=== PATIENT | female | born 1945 | race Caucasian/White ===

== ENCOUNTER 2017-10-24 10:29 | Inpatient (IN) | payer MEDICARE ==
[~2017-10-24] VITALS: Ht 157.5 cm; Wt 80.0 kg
[2017-10-24 10:04] VITALS: BP 151/70
[~2017-10-24 10:29] MED LIST: ALBU18HF IH; LEVO75TA PO; SERT50TA PO; SIMV40TA3 PO
[2017-10-24] MEDS ORDERED: ALBU0.63 NEB (11:03)
[2017-10-24] MEDS ORDERED: FLUD0.1T PO (11:03)
[2017-10-24] MEDS ORDERED: FLUT1DIS3 IH (11:03)
[2017-10-24] MEDS ORDERED: LEVO150T PO (11:03)
[2017-10-24] MEDS ORDERED: SIMV20TA3 PO (11:03)
[2017-10-24] MEDS ORDERED: FERR325T14 PO (11:03)
[2017-10-24] MEDS ORDERED: ASCO-78 PO (11:03)
[2017-10-24] MEDS ORDERED: TRIA10.8 NS (11:03)
[2017-10-24] MEDS ORDERED: SERT100T PO (11:03)
[2017-10-24] MEDS ORDERED: ASPI-630 PO (11:44)
[2017-10-24] MEDS ORDERED: CYAN10005 PO (11:44)
--- NOTE | 2017-10-24 12:30 | HP ---
ADMIT DATE: 10/24/2017 HISTORY OF PRESENT ILLNESS: The patient is a 72-year-old female patient, who was admitted directly from her primary care physician, Dr. Manning to investigate her anemia. She apparently presented to her office there with complaint of shortness of breath and her blood count by fingerstick was found that her hemoglobin was only 6 and therefore she was admitted for further evaluation and treatment. 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 PAST MEDICAL HISTORY: Significant for hypothyroidism, hyperlipidemia, osteoarthritis, bronchial asthma, and aortic stenosis. PAST SURGICAL HISTORY: Significant for aortic valve replacement in 2011, esophagogastroduodenoscopy, colonoscopy, cholecystectomy, total abdominal hysterectomy, bilateral salpingo-oophorectomy, appendectomy and right rotator cuff tear repair and also bilateral cataract extraction. ALLERGIES: She is allergic to . MEDICATIONS: She is currently on following medications: She is on albuterol sulfate 2 puffs every 4 hours as needed, albuterol sulfate by nebulizer 4 times a day. She is on ferrous sulfate 325 mg daily, simvastatin 20 mg at bedtime, aspirin 81 mg once a day, sertraline 100 mg twice a day, Advair Diskus 250/50 one puff twice a day, triamcinolone acetonide or Nasacort one spray to each nostril daily, fludrocortisone acetate 100 mcg daily, levothyroxine sodium 150 mcg once a day, cyanocobalamin 1000 mcg tablet once a day, ascorbic acid 500 mg daily. FAMILY HISTORY: She has 1 older sister that has diseased with complication of Mountrail's disease. Her younger brother and younger sister are still alive. Her younger brother is known to have Mountrail's chorea. Her father at age of 74 with complication of asthma and respiratory failure. Mother at the age of 82 with complication of her Mountrail's disease. SOCIAL HISTORY: She is , lives with her daughter. She quit smoking in 1993. She does not drink alcohol or use any recreational drugs. She used to work as a youth services librarian at [employer] and also . REVIEW OF SYSTEMS: The patient denied any blurring of vision, cataract, glaucoma or macular degeneration. Denied any earache, tinnitus or sensorineural deafness. Denied any nosebleeds, stuffy nose or postnasal drip. Denied any sore throat. Denied any nausea, vomiting, diarrhea or constipation. Denied any hematemesis, melena or hematochezia. Denied any dysuria, frequency or hematuria. She did complain of shortness of breath, but denied any orthopnea or paroxysmal nocturnal dyspnea. Denied any cough, phlegm or hemoptysis. Denied any chills, rigors or fever. PHYSICAL EXAMINATION: GENERAL: On arrival to the hospital she looked pale, but no jaundice, cyanosis or thyromegaly. No jugular venous distension. No limb edema. VITAL SIGNS: Her heart rate was 68, blood pressure 151/70, temperature was 98.4, respiratory rate 20, and oxygen saturation was 97% on room air. HEAD, EYES, EARS, NOSE AND THROAT: Showed normocephalic, atraumatic. NECK: Supple. HEART: Showed normal first and second heart sounds with no gallop, rub or murmur. CHEST: Clear to auscultation. No crepitation or rhonchi. ABDOMEN: Distended, soft, nontender. No guarding or rigidity. No organomegaly. All hernial orifice intact. Bowel sounds normal. NEUROLOGIC: She is awake, alert. All her cranial nerves are intact. EXTREMITIES: She moves her extremities without difficulty. She ambulates without assistance or assistive devices. ASSESSMENT AND PLAN: The patient was admitted to investigate her anemia as her hemoglobin was found to be only 6 at her primary care physician's office. We will send blood for CBC, CMP, serum iron, TIBC, serum ferritin, vitamin B12 and RBC folate. Also, we will send stool for occult blood. We will continue with all her current medication. If hemoglobin is 7 or less than 7, we will transfuse her 1 unit of blood and decide on further management accordingly. SABINA MELGZOA MD DR: TRI/hernandez JOB#: [id number] / [id number]
[2017-10-24 12:31] LABS: BASO % 1 % (0-3); EOS # 0.3 x10^3/uL (0.0-0.7); EOS % 5 % (0-3); HEMATOCRIT 20.7 % (36.0-47.0); LYMPH # 1.1 x10^3/uL (1.0-4.8); LYMPH % 21 % (24-48); MEAN CORPUSCULAR HEMOGLOBIN 21 pg (25-35); MEAN CORPUSCULAR HGB CONC 31 g/dL (31-37); MEAN CORPUSCULAR VOLUME 68 fL (79-100); MONO # 0.4 x10^3/uL (0.0-1.1); MONO % 8 % (0-9); NEUT # 3.4 x10^3uL (1.8-7.7); NEUT % 65 % (31-73); PLATELET COUNT 182 x10^3/uL (140-400); RED BLOOD COUNT 3.07 x10^6/uL (3.50-5.40); RED CELL DISTRIBUTION WIDTH 21.3 % (11.5-14.5); WHITE BLOOD COUNT 5.2 x10^3/uL (4.0-11.0)
[2017-10-24 12:34] LABS: HEMOGLOBIN 6.3 g/dL (12.0-15.5)
[2017-10-24] MEDS ORDERED: diphenhydrAMINE HCL 25 MG CAPSULE PO ONE (12:45)
[2017-10-24] MEDS ORDERED: ACETAMINOPHEN 500 MG TABLET PO ONE ×2 (12:45→23:15)
[2017-10-24 12:50] LABS: ALBUMIN 3.7 g/dL (3.4-5.0); CALCIUM 8.9 mg/dL (8.5-10.1); CREATININE 0.8 mg/dL (0.6-1.0); GFR 70.9; POTASSIUM 3.8 mmol/L (3.5-5.1); TOTAL BILIRUBIN 0.3 mg/dL (0.2-1.0); TOTAL PROTEIN 7.5 g/dL (6.4-8.2)
[2017-10-24 13:33] LABS: PLT ESTIMATE ADEQUATE (ADEQUATE)
[2017-10-24 13:34] LABS: ANISOCYTOSIS MOD; HYPOCHROMIA MOD; MICROCYTOSIS MOD; OVALOCYTES MOD; POIKILOCYTOSIS MOD; POLYCHROMASIA MOD; TEAR DROP CELLS OCC
[2017-10-24] MEDS ORDERED: ALBUTEROL SULFATE 8GM INHALER. IH PRN (14:45)
[2017-10-24] MEDS ORDERED: NON FORMULARY ITEM (Albuterol Sulfate (Albuterol Sulfate Neb Soln) 1 VIAL) NEB PRN (14:45)
[2017-10-24] MEDS ORDERED: ALBUTEROL SULFATE 2.5 MG/3 ML NEBU. NEB PRN (15:00)
[2017-10-24 15:01] VITALS: BP 158/65
[2017-10-24] MEDS: ALBUTEROL SULFATE 2.5 MG/3 ML NEBU. NEB SCH ×2 (16:39→23:11)
[2017-10-24 19:40] VITALS: BP 122/69
[2017-10-24] MEDS ORDERED: NON FORMULARY ITEM (Fluticasone/Salmeterol (Advair 250-50 Diskus) 1 PUFF) IH SCH (21:00)
[2017-10-24] MEDS: BUDESONIDE 0.5 MG/2 ML NEBU NEB SCH (21:08)
[2017-10-24] MEDS: SERTRALINE 100 MG TABLET. PO SCH (22:11)
[2017-10-24] MEDS: SIMVASTATIN 20 MG TABLET PO SCH (22:11)
[2017-10-24] MEDS ORDERED: diphenhydrAMINE ORAL ELIXIR 12.5 MG/5 ML ML PO ONE (23:15)
[2017-10-24 23:54] VITALS: BP 181/75
[2017-10-25] VITALS (11 sets, daily range): BP systolic 146–181; BP diastolic 62–78
[2017-10-25] MEDS: ALBUTEROL SULFATE 2.5 MG/3 ML NEBU. NEB SCH ×4 (04:49→21:46)
[2017-10-25] MEDS ORDERED: diphenhydrAMINE ORAL ELIXIR 12.5 MG/5 ML ML PO ONE (05:00)
[2017-10-25] MEDS ORDERED: ACETAMINOPHEN 325 MG TABLET PO ONE (05:00)
[2017-10-25] MEDS: LEVOTHYROXINE 150 MCG TABLET PO SCH (07:27)
[2017-10-25] MEDS: ASPIRIN 81 MG TAB.CHEW PO SCH (08:00)
[2017-10-25] MEDS: SERTRALINE 100 MG TABLET. PO SCH ×2 (08:47→20:02)
[2017-10-25] MEDS: FLUTICASONE 50MCG/NASAL SPRAY 16GM BOTTLE. NS SCH (08:47)
[2017-10-25] MEDS: ASCORBIC ACID 500 MG TABLET PO SCH (08:47)
[2017-10-25] MEDS: CYANOCOBALAMIN (VITAMIN B-12) 1,000 MCG TABLET. PO SCH (08:47)
[2017-10-25] MEDS: FLUDROCORTISONE 0.1 MG TABLET PO SCH (08:47)
[2017-10-25] MEDS: FERROUS SULFATE 325 MG TABLET. PO SCH (08:47)
[2017-10-25 09:03] LABS: BASO % 1 % (0-3); EOS # 0.2 x10^3/uL (0.0-0.7); EOS % 3 % (0-3); HEMATOCRIT 24.1 % (36.0-47.0); HEMOGLOBIN 7.6 g/dL (12.0-15.5); LYMPH # 0.9 x10^3/uL (1.0-4.8); LYMPH % 15 % (24-48); MEAN CORPUSCULAR HEMOGLOBIN 22 pg (25-35); MEAN CORPUSCULAR HGB CONC 31 g/dL (31-37); MEAN CORPUSCULAR VOLUME 69 fL (79-100); MONO # 0.5 x10^3/uL (0.0-1.1); MONO % 9 % (0-9); NEUT # 4.6 x10^3uL (1.8-7.7); NEUT % 73 % (31-73); PLATELET COUNT 181 x10^3/uL (140-400); RED BLOOD COUNT 3.47 x10^6/uL (3.50-5.40); WHITE BLOOD COUNT 6.3 x10^3/uL (4.0-11.0)
[2017-10-25] MEDS: BUDESONIDE 0.5 MG/2 ML NEBU NEB SCH ×2 (09:18→20:02)
[2017-10-25] MEDS ORDERED: IRON SUCROSE COMPLEX 200 MG in IV NORMAL SALINE 100ML 100 ML IV ONE (11:00)
[2017-10-25] MEDS ORDERED: ACETAMINOPHEN 325 MG TABLET PO PRN (19:45)
[2017-10-25] MEDS: SIMVASTATIN 20 MG TABLET PO SCH (20:02)
--- NOTE | 2017-10-25 21:17 | PN ---
DATE: 10/25/2017 SUBJECTIVE: The patient is resting, sitting on the edge of the bed comfortably in no apparent distress. She denied any complaint. The Blood Bank managed to match 1 unit with difficulty, took almost 12 hours to find a matching unit and did she receive 1 unit of packed RBCs, her hemoglobin has risen from 6.3 to 7.6. Her lab work showed that her serum iron is extremely low at 15. TIBC is high at 431 and percent saturation was 3%, and serum ferritin was extremely low at 11, all consistent with severe iron deficiency anemia and we decided to treat it with Venofer, we started 200 mg today and 500 mg tomorrow. I will keep her 1 more day to make sure that her hemoglobin and hematocrit stable. Will also check her stool for occult blood and if she remains stable, she can be discharged home tomorrow. PHYSICAL EXAMINATION: GENERAL: When I examined her today, she looked pale. No jaundice, cyanosis, or thyromegaly. No jugular venous distension. No lower limb edema. VITAL SIGNS: Her heart rate was 79, blood pressure was 150-158/65, temperature was 98.1, respiratory rate was 18 and oxygen saturation was 98% on room air. HEAD, EYES, EARS, NOSE AND THROAT: Normocephalic, atraumatic. NECK: Supple. HEART: Showed normal first and second heart sounds with no gallop, rub or murmur. CHEST: Clear to auscultation. No crepitation or rhonchi. ABDOMEN: Distended, soft, nontender. No guarding or rigidity. No organomegaly. All hernial orifices intact. Bowel sounds normal. NEUROLOGIC: She was awake, alert, responding appropriately. Cranial nerves intact. She moves extremities without difficulty. She ambulates without assistance or assistive devices. Her intake was 2100, no output was recorded. LABORATORY DATA: Her lab work this morning showed that her serum sodium was 139, potassium 3.8, chloride 106, bicarbonate 28, anion gap of 7, BUN 13, creatinine 0.8, estimated GFR was 70 mL per minute. Her glucose was 100, calcium was 8.9. Serum iron 15, TIBC 431. Iron saturation was 3%, and serum ferritin was 11. Total bilirubin, AST, ALT, alkaline phosphatase were normal. Total protein 7.5, albumin 3.7. Her white cell count this morning is 6300, hemoglobin 7.6, hematocrit 24, MCV 69, and platelet count of 181,000 with a manual differential showed 73% polymorphs, 15% lymphocytes and 9% monocytes. ASSESSMENT: Severe microcytic hypochromic anemia with iron studies consistent with severe iron deficiency anemia. The patient received 1 unit of packed red blood cells and hemoglobin has risen to ____. We will start her on Venofer 200 mg IV today and 500 tomorrow. Will monitor her labs again tomorrow and also check stool for occult blood and if her H and H is stable, she can be discharged to continue treatment with oral iron. SABINA MELGOZA MD DR: TRI/hernandez JOB#: [id number] / [id number]
[2017-10-26] MEDS: ALBUTEROL SULFATE 2.5 MG/3 ML NEBU. NEB SCH ×3 (05:54→15:32)
[2017-10-26 06:12] VITALS: BP 174/68
[2017-10-26 06:16] LABS: BASO # 0.1 x10^3/uL (0.0-0.2); BASO % 1 % (0-3); EOS # 0.2 x10^3/uL (0.0-0.7); EOS % 4 % (0-3); HEMATOCRIT 25.2 % (36.0-47.0); HEMOGLOBIN 7.9 g/dL (12.0-15.5); LYMPH % 19 % (24-48); MEAN CORPUSCULAR HEMOGLOBIN 22 pg (25-35); MEAN CORPUSCULAR HGB CONC 31 g/dL (31-37); MEAN CORPUSCULAR VOLUME 69 fL (79-100); MONO # 0.4 x10^3/uL (0.0-1.1); MONO % 9 % (0-9); NEUT # 3.3 x10^3uL (1.8-7.7); NEUT % 67 % (31-73); PLATELET COUNT 173 x10^3/uL (140-400); RED BLOOD COUNT 3.65 x10^6/uL (3.50-5.40)
[2017-10-26 06:22] LABS: CREATININE 0.8 mg/dL (0.6-1.0); GFR 70.9; POTASSIUM 3.9 mmol/L (3.5-5.1)
[2017-10-26] MEDS: LEVOTHYROXINE 150 MCG TABLET PO SCH (07:34)
[2017-10-26] MEDS: ASPIRIN 81 MG TAB.CHEW PO SCH (08:00)
[2017-10-26] MEDS: FERROUS SULFATE 325 MG TABLET. PO SCH (08:50)
[2017-10-26] MEDS: ASCORBIC ACID 500 MG TABLET PO SCH (08:50)
[2017-10-26] MEDS: SERTRALINE 100 MG TABLET. PO SCH (08:50)
[2017-10-26] MEDS: BUDESONIDE 0.5 MG/2 ML NEBU NEB SCH (09:55)
[2017-10-26 10:35] VITALS: BP 147/69
[2017-10-26] MEDS ORDERED: IRON SUCROSE COMPLEX 500 MG in IV NORMAL SALINE 250ML 250 ML IV ONE (11:00)
[2017-10-26] MEDS: CYANOCOBALAMIN (VITAMIN B-12) 1,000 MCG TABLET. PO SCH (11:19)
[2017-10-26] MEDS: FLUDROCORTISONE 0.1 MG TABLET PO SCH (11:19)
[2017-10-26] MEDS: FLUTICASONE 50MCG/NASAL SPRAY 16GM BOTTLE. NS SCH (11:19)
[2017-10-26] MEDS ORDERED: FERR325T14 PO (14:30)
[2017-10-26] MEDS ORDERED: ASCO500T3 PO (14:30)
--- NOTE | 2017-10-26 19:15 | DS ---
DATE OF DISCHARGE: HOSPITAL COURSE: This patient is a 72-year-old female patient who was admitted directly from her primary care physician on account of severe microcytic hypochromic anemia. The patient was investigated and her laboratory work confirmed that she is anemic. Her hemoglobin on admission was only 6.3, hematocrit 20.7. Her anemia was microcytic, hypochromic with an MCV was only 68. Her further workup showed that she has severe iron deficiency anemia with serum iron was only 15, TIBC was 431, and iron saturation was 3%, and ferritin was only 11; however, her serum vitamin B12 was more than 1000 picogram/mL, and serum folate was more than 20 nanogram/mL. We did type and cross 1 unit of packed RBCs that she has multiple antibodies and difficult to find a match and therefore, based on the severity of her iron deficiency, we treated her with Venofer. She received 200 mg IV in the first day and 500 mg the next day intravenously that she tolerated very well. The patient was discharged home to continue treatment with oral ferrous sulfate and ascorbic acid. PHYSICAL EXAMINATION: GENERAL: When I saw her today, she looked well and was clearly in no apparent respiratory distress, pale, but no jaundice, cyanosis, or thyromegaly. No jugular venous distension. No limb edema. VITAL SIGNS: Her heart rate was 70, blood pressure 147/69, temperature was 98, respiratory rate 20, and oxygen saturation was 94%. HEAD, EYES, EARS, NOSE AND THROAT: Normocephalic, atraumatic. NECK: Supple. HEART: Showed normal first and second heart sounds with no gallop, rub or murmur. CHEST: Clear to auscultation. No crepitation or rhonchi. ABDOMEN: Distended, soft, and nontender. NEUROLOGIC: She is awake, alert, responding appropriately. Cranial nerves intact. EXTREMITIES: She moves extremities without difficulty, ambulates without assistance or assistive devices. LABORATORY DATA: Her Lab work this morning showed a serum sodium 142, potassium 3.9, chloride 105, bicarbonate 28, anion gap of 9, BUN 9, creatinine 0.8, estimated GFR was 71 mL per minute. Her glucose was 93, calcium was 9. Her white cell count was 5000, hemoglobin 8, hematocrit 25, MCV 69, and platelet count of 173,000, with normal manual differential. She was discharged home to continue on ascorbic acid 500 mg twice a day, ferrous sulfate 325 mg twice a day with food. She will continue also on albuterol sulfate 2 puffs every 4-6 hours, and albuterol sulfate by nebulizer 3 or 4 times a day, aspirin 81 mg once a day, cyanocobalamin, vitamin B12 1000 mcg tablet once a day, hydrocortisone 100 mcg once a day, Advair Diskus 250/50 one puff twice a day, levothyroxine sodium 150 mcg once a day, Zoloft 100 mg twice a day, simvastatin 20 mg at bedtime, triamcinolone acetate (Nasacort) one spray to each nostril daily. FINAL DISCHARGE DIAGNOSES: Severe iron deficiency anemia for which she received 1 unit of packed RBCs and was transfused total of 700 mg of Venofer intravenously. Other medical problems include hypothyroidism, hyperlipidemia, bronchial asthma, osteoarthritis, aortic stenosis, status post aortic valve replacement. SABINA MELGOZA MD DR: TRI/hernandez JOB#: [id number] / [id number]
== END 2017-10-26 18:40 | disposition home or self-care (01) | DRG 812 ==
LOC: 1 SOUTH 10:31
PROVIDERS: ADMIT Internal Medicine; ATTEND Internal Medicine
PROC: 30233N1 Transfusion of Nonautologous Red Blood Cells into Peripheral Vein, Percutaneous Approach (ICD-10-PCS; principal; 2017-10-25)
DX: D50.9 Iron deficiency anemia, unspecified (principal); E03.9 Hypothyroidism, unspecified; E78.5 Hyperlipidemia, unspecified; I35.0 Nonrheumatic aortic (valve) stenosis; J45.909 Unspecified asthma, uncomplicated; M19.90 Unspecified osteoarthritis, unspecified site; Z82.5 Family history of asthma and other chronic lower respiratory diseases; Z87.891 Personal history of nicotine dependence; Z90.710 Acquired absence of both cervix and uterus; Z95.2 Presence of prosthetic heart valve; Z98.41 Cataract extraction status, right eye; Z98.42 Cataract extraction status, left eye; Z88.8 Allergy status to other drugs, medicaments and biological substances; Z90.49 Acquired absence of other specified parts of digestive tract; Z90.722 Acquired absence of ovaries, bilateral
CPT/HCPCS: 36415; 80048; 80053; 82607; 82728; 82746; 83540; 83550; 85025; 86850; 86870; 86880; 86900; 86901; 86902; 86922; 94640; J1756; J7050; J7613; J7626; P9016

== ENCOUNTER 2018-01-09 17:00 | Emergency (ER) | payer MEDICARE, BC ==
[~2018-01-09] VITALS: Ht 157.5 cm; Wt 76.2 kg
[~2018-01-09 17:00] MED LIST changes: +ALBU0.63 NEB; +ASCO-78 PO; +ASCO500T3 PO; +ASPI-630 PO; +CYAN10005 PO; +FERR325T14 PO; +FLUD0.1T PO; +FLUT1DIS3 IH; +LEVO150T PO; +SERT100T PO; +SIMV20TA3 PO; +TRIA10.8 NS
[2018-01-09] MEDS ORDERED: IV NORMAL SALINE 1,000ML 1,000 ML IV SCH (17:21)
--- NOTE | 2018-01-09 17:28 | PHYS DOC ---
Past History Past Medical History: Anemia, Asthma, GI Bleed, Hypothyroid Past Surgical History: Appendectomy, Cholecystectomy, Colectomy, Other Alcohol Use: None Drug Use: None Adult General Chief Complaint Chief Complaint: HEMATEMESIS/VOMITING BLOOD HPI HPI Patient is a 72-year-old female who presents with report of having had 2 episodes of coffee ground emesis. Patient states that her first episode was on Tuesday and then she again had a second episode this afternoon. Patient states that she always has dark stools because she takes iron twice a day. She states that initially before the vomiting she was having some abdominal pain but since that time she indicates that her pain is mild. She rates that pain at a 2 out of 10 currently. She denies melena. She does indicate that she has had a GI bleed in the past due to NSAIDs but states that she does not take any NSAIDs anymore. She does indicate that she takes a baby aspirin daily when she can remember. She denies chest pain or shortness of breath. She describes the pain in her stomach as a dull ache. Review of Systems Review of Systems Constitutional: Denies fever or chills [] Respiratory: Denies cough or shortness of breath [] Cardiovascular: Denies chest pain[] GI: Admits to abdominal pain with nausea and vomiting and coffee-ground emesis[] Integument: Denies rash or skin lesions [] Neurologic: Denies headache, focal weakness or sensory changes [] All other systems were reviewed and found to be within normal limits, except as documented in this note. Allergies Allergies Allergies Coded Allergies Type Severity Reaction Last Updated Verified procaine Allergy Intermediate 10/25/17 Yes Physical Exam Physical Exam Constitutional: Well developed, well nourished, no acute distress, non-toxic appearance. [] HENT: Normocephalic, atraumatic, bilateral external ears normal, oropharynx moist, no oral exudates, nose normal. [] Eyes: PERRLA, EOMI, conjunctiva normal, no discharge. [] Neck: Normal range of motion, no tenderness, supple, no stridor. [] Cardiovascular:Heart rate regular rhythm[] Lungs & Thorax: Bilateral breath sounds clear to auscultation [] Abdomen: Bowel sounds normal, soft, with epigastric tenderness. [] Skin: Warm, dry, no erythema, no rash. [] Extremities: No tenderness, no cyanosis, no clubbing, ROM intact, no edema. [] Neurologic: Alert and oriented X 3, normal motor function, normal sensory function, no focal deficits noted. [] Current Patient Data Vital Signs Vital Signs Date Time Temp Pulse Resp B/P (MAP) Pulse Ox O2 Delivery O2 Flow Rate FiO2 01/09/18 17:10 98.5 66 16 95 Room Air EKG EKG [] Radiology/Procedures Radiology/Procedures [] Course & Med Decision Making Course & Med Decision Making Pertinent Labs and Imaging studies reviewed. (See chart for details) Patient signed out to [facility] at 6pm. Received patient at 1800. Agree with previous H&P. Patient was transported to and from CT scan with thank him patient's. At 1900 consultational was made with Dr. Sheriff at [place] who excepts the patient for transfer to an ICU bed given that she has this history of previous GI bleed. Discussed findings and plan with patient who agrees. All questions were answered prior to transfer. Dragon Disclaimer Dragon Disclaimer This electronic medical record was generated, in whole or in part, using a voice recognition dictation system. Departure Departure: Impression: Primary Impression: Upper GI bleed Disposition: XFER OTHER Condition: STABLE Referrals: KALPESH JACKSON MD (PCP) ASHLEY ESTEVES Jr. DO Jan 09, 2018 17:28 MAGDALENA BORJA DO Jan 09, 2018 19:13
[2018-01-09 17:49] LABS: BASO # 0.1 x10^3/uL (0.0-0.2); BASO % 1 % (0-3); EOS # 0.1 x10^3/uL (0.0-0.7); EOS % 2 % (0-3); HEMATOCRIT 35.1 % (36.0-47.0); LYMPH # 1.7 x10^3/uL (1.0-4.8); LYMPH % 25 % (24-48); MEAN CORPUSCULAR HEMOGLOBIN 28 pg (25-35); MEAN CORPUSCULAR HGB CONC 34 g/dL (31-37); MEAN CORPUSCULAR VOLUME 83 fL (79-100); MONO # 0.6 x10^3/uL (0.0-1.1); MONO % 9 % (0-9); NEUT # 4.3 x10^3uL (1.8-7.7); NEUT % 64 % (31-73); PLATELET COUNT 183 x10^3/uL (140-400); RED BLOOD COUNT 4.25 x10^6/uL (3.50-5.40); RED CELL DISTRIBUTION WIDTH 19.6 % (11.5-14.5); WHITE BLOOD COUNT 6.7 x10^3/uL (4.0-11.0)
[2018-01-09 18:02] LABS: ALBUMIN 3.8 g/dL (3.4-5.0); CALCIUM 9.4 mg/dL (8.5-10.1); CREATININE 0.9 mg/dL (0.6-1.0); GFR 61.9; POTASSIUM 3.7 mmol/L (3.5-5.1); TOTAL BILIRUBIN 0.2 mg/dL (0.2-1.0); TOTAL PROTEIN 7.8 g/dL (6.4-8.2)
[2018-01-09] MEDS ORDERED: IOHEXOL 300 MG/ML 75 ML VIAL. IV ONE (18:15)
--- NOTE | 2018-01-09 18:32 | RAD ---
PQRS Compliance statement: One or more of the following individualized dose reduction techniques were utilized for this examination: 1. Automated exposure control. 2. Adjustment of the mA and/or kV according to patient size. 3. Use of iterative reconstruction technique. Indication:UPPER ABDOMINAL PAIN WITH COFFEE GROUND EMESIS, TECHNIQUE: CT abdomen and pelvis with IV contrast with multiplanar reformats. COMPARISON: None FINDINGS: Limited evaluation of solid abdominal and pelvic organs due to lack of IV contrast. Clear lung bases. Small sliding hiatal hernia. Spleen is mildly enlarged measuring 15 cm. Otherwise, liver, pancreas, adrenals within normal limits. Status post cholecystectomy. No nephrolithiasis or hydronephrosis. No enlarged retroperitoneal or pelvic adenopathy. Mild diffuse atherosclerotic disease of the abdominal aorta. No free pelvic fluid or ascites. Small fat-containing left inguinal hernia. No bowel obstruction. No pneumoperitoneum. Urinary bladder within normal limits. Status post hysterectomy. No suspicious bony lesion. IMPRESSION: 1. Small sliding hiatal hernia. 2. Mild splenomegaly, nonspecific. Electronically signed by: Blaine Cohen DO (01/09/2018 6:28 PM) [facility]
[2018-01-09 18:35] LABS: ANISOCYTOSIS SLIGHT; HYPOCHROMIA PRESENT; OVALOCYTES PRESENT; PLT ESTIMATE ADEQUATE (ADEQUATE)
[2018-01-09 19:04] LABS: BACTERIA,URINE FEW /HPF (0-FEW); BILIRUBIN,URINE NEG (NEG); CLARITY,URINE HAZY; COLOR,URINE YELLOW; GLUCOSE,URINE NEG (NEG); NITRITE,URINE NEG (NEG); RBC,URINE RARE /HPF (0-2); SQUAMOUS EPITHELIAL CELL,UR MOD /LPF; UROBILINOGEN,URINE 0.2 mg/dL (0.2 mg/dL)
[2018-01-09 19:39] VITALS: BP 141/72
== END 2018-01-09 20:10 | disposition short-term general hospital (02) ==
LOC: ER 17:00
DX: K92.2 Gastrointestinal hemorrhage, unspecified (principal); J45.909 Unspecified asthma, uncomplicated; E03.9 Hypothyroidism, unspecified; Z86.2 Personal history of diseases of the blood and blood-forming organs and certain disorders involving the immune mechanism; Z90.49 Acquired absence of other specified parts of digestive tract; Z90.89 Acquired absence of other organs; Z88.4 Allergy status to anesthetic agent
CPT/HCPCS: 36415; 74177; 80053; 81001; 83690; 85025; 85610; 87086; 96360; 99285; Q9967; J7030

== ENCOUNTER 2018-05-24 08:22 | Emergency (ER) | payer MEDICARE, BC ==
[~2018-05-24] VITALS: Ht 157.5 cm; Wt 71.2 kg
[~2018-05-24 08:22] MED LIST changes: -ALBU18HF IH; +ALBU2.5V8 IH
[2018-05-24] MEDS ORDERED: NITROGLYCERIN SUBLINGUAL 0.4 MG BOTTLE OF 25. SL PRN (08:45)
--- NOTE | 2018-05-24 08:47 | PHYS DOC ---
Past History Past Medical History: Anxiety, Asthma, Depression, High Cholesterol, Hypothyroid Past Surgical History: Hysterectomy Alcohol Use: None Drug Use: None Adult General Chief Complaint Chief Complaint: CHEST PAIN HPI HPI Patient is a 73 year old female who presents with chest pain. Patient complaining of intermittent episodes of left-sided chest pain for the last 3 days that usually lasts about 30 minutes and resolves with 81 mg of aspirin. Patient states the pain is sharp pain without radiation, shortness of breath, nausea, palpitation, dizziness. Patient states she has had mild cough. Patient has history of aortic valve replacement and her primary care physician recommended to come to ER. Patient has history of dyslipidemia without hypertension, diabetes, smoking, family history of coronary artery disease. Patient rated her pain 6/10 at this time and states the pain getting worse with movement. Patient started exercising recently. Review of Systems Review of Systems Constitutional: Denies fever or chills [] Eyes: Denies change in visual acuity, redness, or eye pain [] HENT: Denies nasal congestion or sore throat [] Respiratory: Denies cough or shortness of breath [] Cardiovascular: No additional information not addressed in HPI [] GI: Denies abdominal pain, nausea, vomiting, bloody stools or diarrhea [] : Denies dysuria or hematuria [] Musculoskeletal: Denies back pain or joint pain [] Integument: Denies rash or skin lesions [] Neurologic: Denies headache, focal weakness or sensory changes [] Endocrine: Denies polyuria or polydipsia [] All other systems were reviewed and found to be within normal limits, except as documented in this note. Allergies Allergies Allergies Coded Allergies Type Severity Reaction Last Updated Verified procaine Allergy Intermediate 10/25/17 Yes Physical Exam Physical Exam Constitutional: Well developed, well nourished, moderate distress, non-toxic appearance. [] HENT: Normocephalic, atraumatic, oropharynx moist, no oral exudates, nose normal. [] Eyes: PERRLA, EOMI, conjunctiva normal, no discharge. [] Neck: Normal range of motion, no tenderness, supple, no stridor. [] Cardiovascular:Heart rate regular rhythm, systolic murmur [] Lungs & Thorax: Bilateral breath sounds clear to auscultation,reproducible left -sided chest pain[] Abdomen: Bowel sounds normal, soft, no tenderness, no masses, no pulsatile masses. [] Skin: Warm, dry, no erythema, no rash. [] Back: No tenderness, no CVA tenderness. [] Extremities: No tenderness, no cyanosis, no clubbing, ROM intact, no edema. [] Neurologic: Alert and oriented X 3, normal motor function, normal sensory function, no focal deficits noted. [] Psychologic: Affect anxious, mood normal. [] Current Patient Data Vital Signs Vital Signs Date Time Temp Pulse Resp B/P (MAP) Pulse Ox O2 Delivery O2 Flow Rate FiO2 05/24/18 08:30 62 20 95 Room Air EKG EKG Age interpreted by me. EKG at 02 showed normal sinus rhythm at rate of 62, incomplete right bundle-branch block, T-wave abnormalities in anteroseptal leads unchanged from previous EKG dated 02/17/2015, no acute ST and T-wave abnormalities. Radiology/Procedures Radiology/Procedures [] Course & Med Decision Making Course & Med Decision Making Pertinent Labs and Imaging studies reviewed. (See chart for details) Evaluation of patient in ER showed 73-year-old female patient with complaining of intermittent episodes of left-sided chest pain for the last 3 days. Patient had reproducible chest wall pain with unremarkable EKG and labs and chest x- ray. Patient felt better with treatment in ER. Plan discharge patient home to diagnose of musculoskeletal chest pain. Dragon Disclaimer Dragon Disclaimer This electronic medical record was generated, in whole or in part, using a voice recognition dictation system. Departure Departure: Impression: Primary Impression: Musculoskeletal chest pain Additional Impressions: Anxiety Iron deficiency anemia due to chronic blood loss Disposition: HOME, SELF-CARE (at 0935) Condition: IMPROVED Referrals: KALPESH JACKSON MD (PCP) Patient Instructions: Chest Wall Pain Additional Instructions: Drink plenty of liquids Follow-up with your primary care physician in 3-5 days Return to ER if not getting better Scripts Naproxen (NAPROSYN) 500 Mg Tablet 500 MG PO BID for pain, #14 TAB Prov: HARPAL ARGUETA MD 05/24/18 Problem Qualifiers HARPAL ARGUETA MD May 24, 2018 08:47
[2018-05-24 09:04] LABS: BASO % 1 % (0-3); EOS # 0.1 x10^3/uL (0.0-0.7); EOS % 2 % (0-3); HEMATOCRIT 34.3 % (36.0-47.0); HEMOGLOBIN 11.6 g/dL (12.0-15.5); LYMPH # 1.3 x10^3/uL (1.0-4.8); LYMPH % 27 % (24-48); MEAN CORPUSCULAR HEMOGLOBIN 30 pg (25-35); MEAN CORPUSCULAR HGB CONC 34 g/dL (31-37); MEAN CORPUSCULAR VOLUME 87 fL (79-100); MONO # 0.5 x10^3/uL (0.0-1.1); MONO % 11 % (0-9); NEUT # 2.8 x10^3uL (1.8-7.7); NEUT % 60 % (31-73); PLATELET COUNT 202 x10^3/uL (140-400); RED BLOOD COUNT 3.93 x10^6/uL (3.50-5.40); RED CELL DISTRIBUTION WIDTH 13.4 % (11.5-14.5); WHITE BLOOD COUNT 4.8 x10^3/uL (4.0-11.0)
[2018-05-24] MEDS ORDERED: ASPIRIN 81 MG TAB.CHEW PO ONE (09:10)
[2018-05-24 09:25] LABS: ALBUMIN 3.9 g/dL (3.4-5.0); ALBUMIN/GLOBULIN RATIO 1.1 (1.0-1.7); CALCIUM 9.3 mg/dL (8.5-10.1); CREATININE 0.9 mg/dL (0.6-1.0); GFR 61.7; MAGNESIUM 1.9 mg/dL (1.8-2.4); POTASSIUM 3.9 mmol/L (3.5-5.1); TOTAL BILIRUBIN 0.3 mg/dL (0.2-1.0); TOTAL PROTEIN 7.6 g/dL (6.4-8.2)
--- NOTE | 2018-05-24 09:30 | RAD ---
Indication:CHEST PAIN SINCE TUESDAY, HX AORTIC VALVE REPLACED FROM DEFECT TECHNIQUE:Portable AP chest X-ray COMPARISON:02/17/2015 FINDINGS: Patient is significantly rotated to the left side limiting optimal evaluation. Prostatic aortic valve. Median sternotomy noted. Heart is normal in size. Lungs are hyperinflated. No focal consolidation. No pneumothorax or pleural effusion. Visualized bony thorax within normal limits. IMPRESSION: No acute pulmonary process. Findings of COPD. Electronically signed by: Blaine Cohen DO (05/24/2018 9:27 AM) [id number]
[2018-05-24 09:35] VITALS: BP 123/61
[2018-05-24] MEDS ORDERED: NAPR-683 PO (09:36)
--- NOTE | 2018-05-24 14:16 | EKG ---
[address] [address] Test Date: 2018-05-24 Test Time: 08:33:26 Pat Name: ARACELI CHOW Department: Room: Gender: F [employer] Recorder: ED4 : 1945 Requested By: HARPAL ARGUETA Order Number: [id number] Reading MD: Albino Cheney MD Measurements Intervals [place] Rate: 62 P: 61 MS: 154 QRS: -31 QRSD: 98 T: 75 QT: 398 QTc: 406 Interpretive Statements SINUS RHYTHM NON-SPECIFIC ST/T CHANGES Electronically Signed On 05-25-2018 11:07:30 [employer] by Albino Cheney MD
== END 2018-05-24 09:50 | disposition home or self-care (01) ==
LOC: ER 08:22
DX: R07.89 Other chest pain (principal); F41.9 Anxiety disorder, unspecified; D50.0 Iron deficiency anemia secondary to blood loss (chronic); J45.909 Unspecified asthma, uncomplicated; F32.9 Major depressive disorder, single episode, unspecified; E78.00 Pure hypercholesterolemia, unspecified; E03.9 Hypothyroidism, unspecified; Z88.4 Allergy status to anesthetic agent
CPT/HCPCS: 36415; 71045; 80053; 82550; 83735; 83880; 84484; 85025; 85610; 93005; 99284

== ENCOUNTER → 2018-12-12 | Outpatient (CLI) | payer MEDICARE, BC ==
[~2018-12-12] MED LIST changes: +CYAN-25 PO; -CYAN10005 PO; +NAPR-683 PO
--- NOTE | 2018-12-12 16:53 | RAD ---
EXAM: Right lower extremity venous Doppler sonogram. HISTORY: Pain and swelling. TECHNIQUE: Jimenez scale and color Doppler sonographic evaluation of the right lower extremity veins with spectral waveform analysis was performed. FINDINGS: There is normal color flow, normal compressibility and there are normal spectral waveforms in the common femoral, superficial femoral, popliteal, posterior tibial and greater saphenous veins. IMPRESSION: No Doppler evidence of lower extremity deep venous thrombosis. Electronically signed by: Sherry Kline MD (12/12/2018 4:50 PM) [place] [id number]
== END | disposition home or self-care (01) ==
LOC: US 16:12
PROVIDERS: ATTEND Specialist
DX: M79.604 Pain in right leg (principal)
CPT/HCPCS: 93971

== ENCOUNTER → 2019-01-10 | Outpatient (CLI) | payer MEDICARE, BC ==
--- NOTE | 2019-01-10 11:39 | RAD ---
DATE: 01/10/2019. EXAM: MAMMO OLGA SCREENING BILATERAL. HISTORY: Routine mammographic screening. COMPARISON: None available. This is interpreted as a baseline study. This study was interpreted with the benefit of Computerized Aided Detection (CAD). FINDINGS: Breast Density: SCATTERED The breast parenchyma shows scattered fibroglandular densities. Breast parenchyma level B.. Scattered calcifications are benign. There are no suspicious masses, microcalcifications or architectural distortion. BI-RADS CATEGORY: 2 BENIGN FINDING(S). RECOMMENDED FOLLOW-UP: 12M 12 MONTH FOLLOW-UP. PQRS compliance statement: Patient information was entered into a reminder system with a target due date 01/11/2020 for the next mammogram. Mammography is a sensitive method for finding small breast cancers, but it does not detect them all and is not a substitute for careful clinical examination. A negative mammogram does not negate a clinically suspicious finding and should not result in delay in biopsying a clinically suspicious abnormality. "Our facility is accredited by the [employer] Mammography Program."
== END | disposition home or self-care (01) ==
LOC: MAMMO 08:21
PROVIDERS: ATTEND Specialist
DX: Z12.31 Encounter for screening mammogram for malignant neoplasm of breast (principal); N64.89 Other specified disorders of breast
CPT/HCPCS: 77063; 77067

== ENCOUNTER → 2019-05-09 | Outpatient (CLI) | payer OTHER, MEDICARE ==
[~2019-05-09] MED LIST changes: +SIMV20TA18 PO; -SIMV20TA3 PO; +SIMV40TA18 PO; -SIMV40TA3 PO
--- NOTE | 2019-05-09 16:22 | RAD ---
EXAM: Cervical spine, 5 views. HISTORY: Pain. COMPARISON: None. FINDINGS: 5 views of the cervical spine are obtained. There is no significant listhesis. No fracture is seen. There is multilevel facet arthropathy. There is suspected bilateral mid and lower cervical foraminal stenosis. There are median sternotomy wires. IMPRESSION: 1. Multilevel facet arthropathy. 2. No acute osseous finding. Electronically signed by: Sherry Kline MD (05/09/2019 4:19 PM) [facility]
== END | disposition home or self-care (01) ==
LOC: DXRAD 15:46
PROVIDERS: ATTEND Specialist
DX: M46.82 Other specified inflammatory spondylopathies, cervical region (principal); M12.88 Other specific arthropathies, not elsewhere classified, other specified site; M48.02 Spinal stenosis, cervical region
CPT/HCPCS: 72050

== ENCOUNTER → 2020-11-12 | Outpatient (CLI) | payer MEDICARE ==
[~2020-11-12] MED LIST changes: +CHOL10004 PO; +HALO2TAB PO; +LEVO150T75 PO; +MAGN250T10 PO; +NAPR-695 PO; +SERT-269 PO; +TRAZ150T49 PO; +VITA-8 PO
--- NOTE | 2020-11-12 15:09 | RAD ---
EXAM: Left knee, 4 views. HISTORY: Pain. COMPARISON: None. FINDINGS: 4 views of the left knee are obtained. There is mild medial compartment spurring. There is no fracture, dislocation or subluxation. There is no joint effusion. IMPRESSION: Mild medial compartment osteoarthritis of the left knee. Electronically signed by: Sherry Kline MD (11/12/2020 3:07 PM) [id number]
== END ==
LOC: RAD 14:20
PROVIDERS: ATTEND Specialist
DX: M17.12 Unilateral primary osteoarthritis, left knee (principal); M76.892 Other specified enthesopathies of left lower limb, excluding foot; M25.562 Pain in left knee
CPT/HCPCS: 73562

== ENCOUNTER → 2020-11-19 | Outpatient (CLI) | payer MEDICARE ==
[2020-11-15 11:18] VITALS: BP 126/76
--- NOTE | 2020-11-19 12:50 | RAD ---
EXAM: US right upper extremity DATE: 11/19/2020 11:48 AM COMPARISON: None INDICATION: Reason: PAIN AT IV SITE / Spl. Instructions: / History: TECHNIQUE: Longitudinal and transverse imaging with intermittent Doppler sampling completed with atte ntion to site of palpable abnormality the right upper extremity. FINDINGS: Echogenic material within the distended cephalic vein from the level of the mid forearm to the mid hu merus. The brachial vein, radial vein, ulnar vein are patent. IMPRESSION: Thrombus is seen within the cephalic vein from the level of the mid forearm to the mid humerus. Electronically signed by: Edson Johnson MD (11/19/2020 12:47 PM) [id number]
== END ==
LOC: US 11:44
PROVIDERS: ATTEND Specialist
DX: S40.021A Contusion of right upper arm, initial encounter (principal); I82.611 Acute embolism and thrombosis of superficial veins of right upper extremity; X58.XXXA Exposure to other specified factors, initial encounter; Y93.89 Activity, other specified; Y92.89 Other specified places as the place of occurrence of the external cause; Y99.8 Other external cause status
CPT/HCPCS: 76882

== ENCOUNTER → 2020-12-11 | Outpatient (CLI) | payer MEDICARE ==
[2020-11-15 11:18] VITALS: BP 126/76
--- NOTE | 2020-12-11 16:24 | RAD ---
EXAMINATION: US DPLX VENOUS EXTREMITY UPPER RT (UPPER EXTREMITY VENOUS ULTRASOUND) CLINICAL HISTORY: Follow-up SVT in right upper extremity TECHNIQUE: Sonographic grayscale images obtained of the right upper extremity deep venous system with color flow Doppler, compression, and augmentation techniques as indicated. Images obtained and stor ed in a permanent archive. COMPARISON: 11/19/2020 FINDINGS: No evidence of absent flow or incompressibility within the internal jugular, subclavian, axillary, an d brachial veins. Visualized radial and ulnar veins appear patent on limited evaluation. Decreased thrombus in the superficial cephalic vein with residual thrombus still present at the antec ubital fossa. No evidence of absent flow or incompressibility within the superficial basilic vein. IMPRESSION: No evidence of right upper extremity DVT. Mild residual superficial venous thrombus in the cephalic vein at the antecubital fossa. Electronically signed by: Mateus Mcdonald DO (12/11/2020 4:21 PM) [id number]
== END ==
LOC: US 15:26
PROVIDERS: ATTEND Specialist
DX: I82.611 Acute embolism and thrombosis of superficial veins of right upper extremity (principal)
CPT/HCPCS: 93971

== ENCOUNTER → 2021-02-24 | Outpatient (CLI) | payer MEDICARE ==
[2020-11-15 11:18] VITALS: BP 126/76
--- NOTE | 2021-02-24 14:22 | RAD ---
Digital Mammogram Bilateral (2-D) History: Routine screening Technique: 2-D digital CC and MLO views were obtained. CAD - computer aided detection was utilize d. Comparison: 01/10/2019 mammogram. Findings: Breast Tissue Density B : There are scattered areas of fibroglandular density There are no suspicious masses, malignant appearing calcifications, or areas of architectural distort ion. Impression: No evidence of malignancy. Assessment: BI-RADS Category 1: Negative. Recommendation: Routine screening mammograms. The patient will receive a letter with the results in the mail. Patient information will be entered i nto the mammography reminder system with a target recall date for the next mammogram. A reminder garrison er will be generated. Electronically signed by: Jesenia Pulliam MD (02/24/2021 2:19 PM) [id number]
--- NOTE | 2021-02-25 07:55 | RAD ---
INDICATION: Screening for osteopenia/osteoporosis. Reason: SCREENING / Spl. Instructions: / History : Postmenopausal screening COMPARISON: None. TECHNIQUE: Bone densitometry was performed through the lumbar spine and proximal femur. IMPRESSION: Lumbar Spine: BMD: 1.08 T-Score: -0.8 Range: Lower limits of normal Proximal Femur: BMD: 0.73 T-Score: -1.9 Range: Osteopenic World Health Organization Criteria for Bone Density: T-Score: > -1.0: Normal Range < -1.0 to -2.5: Osteopenic Range < -2.5: Osteoporotic Range Electronically signed by: Nilson Briceno MD (02/25/2021 7:52 AM) [id number]
== END ==
LOC: MAMMO 13:05
PROVIDERS: ATTEND Specialist
DX: Z12.31 Encounter for screening mammogram for malignant neoplasm of breast (principal); M85.88 Other specified disorders of bone density and structure, other site
CPT/HCPCS: 77067; 77080